=== PATIENT | female | born 1990 | race Hispanic/Latino ===

== ENCOUNTER 2020-05-13 13:00 | Outpatient (CLI) | payer MEDICAID, OTHER ==
[2020-05-14 12:18] LABS: SARS-CoV-2 MS2 Positive; SARS-CoV-2 N Gene Negative; SARS-CoV-2 S Gene Negative; SARS-CoV-2 orf1ab Negative
== END 2020-05-13 13:01 | disposition home or self-care (01) ==
LOC: SCSLAB 13:00
PROVIDERS: ATTEND Family Medicine
DX: Z01.812 Encounter for preprocedural laboratory examination (principal); Z11.59 Encounter for screening for other viral diseases
CPT/HCPCS: 87635; U0003

== ENCOUNTER 2020-05-17 19:45 | Inpatient (IN) | payer MEDICAID, OTHER, SELFPAY ==
[~2020-05-17 19:45] MED LIST: Bupivacaine/Epinephrine 0.25% 30 ML VIAL ONE
[2020-05-17 21:31] VITALS: BMI 32.5
[2020-05-17] MEDS: Lactated Ringer's 1,000 ML IV SCH (21:50)
--- NOTE | 2020-05-17 22:06 | PDOC.FPROB ---
FMR OB H&P: HPI - History of Present Illness Chief Complaint: eIOL Indentification: History of Present Illness: 29 yo at 39.6 wks dated by LMP c/w 9.1 wk sono who presents for eIOL. She has PMH significant for anemia of . She lost a at 1 month due to a cardiac abnormality. echocardiogram with MFM revealed was normal. Pt also has hx of trich with COLBY. Today she feels contractions q6mins, mild pain. She denies OCONNELL, vision changes, shortness of breath, LE edema, abdominal pain. She denies loss of fluids, vaginal bleeding, discharge. [facility] FMR OB H&P: Current - Care : 3 Para: 2000 Gestational age: 39.6 wks Due date: 05/18/20 Dating Criteria: LMP c/w 9.1 wks sono Course/Complications: Anemia of - OB Labs Blood type: O RH: positive Antibody Screen: negative HIV: negative RPR: negative HepBsAg: negative Rubella: immune Gonorrhea: negative Chlamydia: negative Pap Smear: NILM 06/19 A1c: 5.0 GBS: negative H&H: 09/28.9 - Additional Ultrasound Additional: 02/08/20 [place] 88%, Anterior placenta, HAYDEE 22.8, Grossly normal anatomy seen. FMR OB H&P: History - Past Medical History PMH: Anemia of - OB History OB History: Anemia of ; lost a child 2/2 cardiac abnormality at 1 month TDaP given 03/03/20 - EDUCATION SUPERVISOR History EDUCATION SUPERVISOR History: Hx of trich - COLBY negative - Social History Social History: Denies alcohol, tobacco, drugs - Family History Family History: non-contributory FMR OB H&P: Medications - Current Home Medications: Medication Instructions Recorded Confirmed Type [id number]/Iron Fum/Folic/Docusate 1 tablet PO DAILY 05/17/20 05/17/20 History [ 19] Allergies/Adverse Reactions: Allergies Allergy/AdvReac Type Severity Reaction Status Date / Time No Known Drug Allergies Allergy Verified 05/17/20 21:01 FMR OB H&P: ROS - Review of Systems General: denies: fever/chills, weight/appetite/sleep changes Eyes: denies: eye pain, vision changes ENT: denies: nasal congestion, rhinorrhea Cardiovascular: denies: chest pain, palpitation, edema Respiratory: denies: cough, shortness of breath Gastrointestinal: denies: abdominal pain, nausea, vomiting, diarrhea, constipation Genitourinary (Female): denies: dysuria, hematuria Musculoskeletal: denies: pain, swelling Neurologic: denies: numbness, syncope Integumentary: denies: itching, rash Psychological: denies: depression, anxiety FMR OB H&P: Vital Signs - Maternal Vital signs: Vital Signs - First Documented Temp Pulse Resp BP 98.4 F 73 18 132/75 05/17/20 20:56 05/17/20 20:56 05/17/20 20:56 05/17/20 20:56 - Heart Tones Baseline: 165 Variability: moderate Acceleration: present Deceleration: absent Category: category 1 [place] contractions every: q6min FMR OB H&P: Physical Exam - Physical Exam General: NAD, awake, alert and oriented HEENT: PERRLA, EOMI Neck: FROM, no JVD Heart: RRR, normal S1/S2, pulses present, no edema General: CTAB, no respiratory distress, no wheezing Abdomen: soft, gravid, non-tender, bowel sound present Musculoskeletal: pulses present, FROM in all four extremities Neurological: cranial nerves II through XII intact, sensation to pain,touch and proprioception grossly normal Skin: no rash, capillary refill <2 seconds Lymphatic: no purpura, no petechia Psychiatric: intact recent and remote memory, good judgement and insight FMR OB H&P: A/P - Problem List (1) Elective induction of labor planned Current Visit: Yes Status: Acute Code(s): [id number] - (2) Intrauterine Current Visit: Yes Status: Acute Code(s): Z34.90 - ENCNTR FOR SUPRVSN OF NORMAL , UNSP, UNSP TRIMESTER (3) Anemia affecting Current Visit: Yes Status: Acute Code(s): O99.019 - ANEMIA COMPLICATING , UNSPECIFIED TRIMESTER Disposition: Pt is a 29 yo at 39.6 wks dated by LMP c/w 9.1 wks sono who presents for eIOL: # eIOL - [place] 3, contractions q6mins and noticeable. Start cytotec - Borderline tachycardia - monitor. Moderate variability with accelerations present. # Anemia of - H/H pending # GBS negative # Hx of Trichomoniasis - COLBY negative Dispo: admit for cytotec induction Discussion: Date/Time: 05/17/202205 This H&P was discussed with Dr. Sin who agrees with the above documentation and plan.
[2020-05-17] MEDS ORDERED: Lidocaine 1% (PF) 30 ML VIAL SC PRN (22:46)
[2020-05-17] MEDS ORDERED: Carboprost 250 MCG/ML AMP IM PRN (22:46)
[2020-05-17] MEDS ORDERED: Ibuprofen 800 MG TAB PO PRN (22:46)
[2020-05-17] MEDS ORDERED: NS / Oxytocin 40 units/1000ml 1,000 ML IV PRN (22:46)
[2020-05-17] MEDS ORDERED: Misoprostol 200 MCG TAB PR PRN (22:46)
[2020-05-17] MEDS ORDERED: Methylergonovine 0.2 MG/ML VIAL IM PRN (22:46)
[2020-05-17] MEDS ORDERED: Acetaminophen 500 MG TAB PO PRN (22:48)
[2020-05-17] MEDS ORDERED: Promethazine HCl 25 MG/ML VIAL IM PRN (22:48)
[2020-05-17] MEDS ORDERED: hydrALAZINE 20 MG/ML VIAL SLOW IVP PRN (22:48)
[2020-05-17] MEDS ORDERED: Ondansetron PF 4 MG/2 ML Vial IVP PRN (22:48)
[2020-05-17] MEDS ORDERED: NS w/ Oxytocin 10 units 500 ML IV SCH (23:00)
[2020-05-17] MEDS ORDERED: Misoprostol 100 MCG TAB VAG SCH (23:00)
[2020-05-17] MEDS: NS w/ Oxytocin 10 units 500 ML IV SCH (23:05)
[2020-05-17 23:08] LABS: Hemoglobin 10.8 g/dL (12.0-16.0); Mean Corpuscular HGB CONC 34.1 g/dL (32.0-36.0); Mean Corpuscular Volume 90.7 fL (78.0-98.0); Platelet Count 119 thou/uL (130-400); RBC Distribution Width 13.5 % (11.5-14.5); Red Blood Cell (RBC) Count 3.49 mill/uL (4.20-5.40); White Blood Cell (WBC) Count 7.5 thou/uL (4.8-10.8)
--- NOTE | 2020-05-18 03:12 | PDOC.LDPN ---
Labor & Delivery Progress Note - Subjective Subjective: comfortable - Objective Vital signs reviewed and normal: yes General: NAD, resting Uterine fundus: palpable contractions SVE: 03/26/-3 FHT: category 1, variability present [place] contractions every: 2-3 mins - Assessment (1) Elective induction of labor planned Code(s): ZTE9235 - Current Visit: Yes Status: Acute (2) Intrauterine Code(s): Z34.90 - ENCNTR FOR SUPRVSN OF NORMAL , UNSP, UNSP TRIMESTER Current Visit: Yes Status: Acute (3) Anemia affecting Code(s): O99.019 - ANEMIA COMPLICATING , UNSPECIFIED TRIMESTER Current Visit: Yes Status: Acute Plan: continue plan of care -: Pt is a 29 yo at 40.0 wks dated by LMP c/w 9.1 wks sono who presents for eIOL: # eIOL - Cat 1 strip, denisa q2-3 mins. Change made with 1 cytotec. Denisa too frequently at this time for another dose. Will recheck in 3 hours. # Anemia of - Hgb 10.8 # GBS negative # Hx of Trichomoniasis - COLBY negative Dispo: continue current plan
--- NOTE | 2020-05-18 06:40 | PDOC.LDPN ---
Labor & Delivery Progress Note - Subjective Subjective: comfortable, no concerns - Objective Vital signs reviewed and normal: yes General: NAD, resting SVE: soft, midline Dilation: 4.5/40/-2 FHT: category 1, variability present [place] contractions every: 1-5 min Plan: continue plan of care -: - pike score 7 - will discuss starting pitocin at this time.
[2020-05-18] MEDS ORDERED: NS w/ Oxytocin 10 units 500 ML IV SCH (07:15)
--- NOTE | 2020-05-18 08:45 | PDOC.LDPN ---
Labor & Delivery Progress Note - Subjective Subjective: comfortable, painful contractions - Objective Vital signs reviewed and normal: yes General: NAD, breathing through contractions SVE: 6/50/-2 Dilation: 6 Effacement: 50% Station: -2 FHT: category 1, variability present [place] contractions every: 1-4 min AROM: clear fluid Plan: continue plan of care -: - AROM at 0845 - continue expectant mgmt. - may start pitocin if contractions slow down.
[2020-05-18] MEDS ORDERED: Fentanyl 4 mcg/Bup 0.1% Cadd 100 ML ONE (09:28)
--- NOTE | 2020-05-18 10:39 | PDOC.LDPN ---
Labor & Delivery Progress Note - Subjective Subjective: comfortable, painful contractions - Objective Vital signs reviewed and normal: yes General: NAD, breathing through contractions SVE: 7/80/-2 Dilation: 7 Station: -2 FHT: category 1, variability present [place] contractions every: 1-4 min Plan: continue plan of care -: - continue expectant mgmt - may have epidural as desired.
[2020-05-18] MEDS: Lactated Ringer's 1,000 ML IV SCH (11:00)
[2020-05-18] MEDS ORDERED: EPHEDRINE 25 MG/5 ML SYRINGE SLOW IVP PRN (11:34)
[2020-05-18] MEDS ORDERED: Acetaminophen 325 MG TAB PO PRN (11:34)
[2020-05-18] MEDS ORDERED: Ondansetron PF 4 MG/2 ML Vial IVP PRN ×2 (11:34→18:44)
[2020-05-18] MEDS ORDERED: diphenhydrAMINE 50 MG/ML VIAL IVP PRN (11:34)
[2020-05-18] MEDS ORDERED: Promethazine HCl 25 MG/ML VIAL IM PRN (11:34)
[2020-05-18] MEDS ORDERED: Naloxone HCl 0.4 mg/ml Vial IVP PRN ×2 (11:34)
[2020-05-18] MEDS ORDERED: Lactated Ringer's 500 ML IV PRN (11:34)
[2020-05-18] MEDS ORDERED: Communication Order-Pharmacy FS PRN (11:45)
[2020-05-18] MEDS ORDERED: Fentanyl 4 mcg/Bupivacaine 0.1% Cassette 100 ML EPIDURAL SCH (11:45)
[2020-05-18] MEDS: NS w/ Oxytocin 10 units 500 ML IV SCH (12:36)
--- NOTE | 2020-05-18 13:01 | PDOC.LDPN ---
Labor & Delivery Progress Note - Subjective Subjective: comfortable - Objective Vital signs reviewed and normal: yes General: NAD, resting SVE: 8/80/-2 FHT: category 1, early decelerations, variability present AROM: clear fluid - Assessment (1) Anemia affecting Code(s): O99.019 - ANEMIA COMPLICATING , UNSPECIFIED TRIMESTER Current Visit: Yes Status: Acute (2) Elective induction of labor planned Code(s): PNI9015 - Current Visit: Yes Status: Acute (3) Intrauterine Code(s): Z34.90 - ENCNTR FOR SUPRVSN OF NORMAL , UNSP, UNSP TRIMESTER Current Visit: Yes Status: Acute Plan: labor augmentation -: SVE unchanged from last check 2 hours ago, 8/80/-2. Cat 1, occasional early decels. Start pitocin, maternal position change with peanut ball. Recheck in 2 hours. ATTENDING ADDENDUM: I personally evaluated the patient at 1420. 8/90/-1 LOT. occasional late decel but otherwise reassuring FHT. IUPC placed. Continue augmentation. was easy to rotate in the canal but would not stay OA. Continue expectant management.
--- NOTE | 2020-05-18 16:23 | PDOC.LDPN ---
Labor & Delivery Progress Note - Subjective Subjective: comfortable, painful contractions - Objective Vital signs reviewed and normal: yes General: NAD, resting SVE: anterior lip/0 Dilation: anterior lip Effacement: 100% Station: 0 FHT: category 2, variable decelerations (recurrent), variability present [place] contractions every: 1-3 min Resuscitative measures: amniofusion, maternal position change Plan: continue plan of care, pitocin for augmentation (pit at 6), resuscitative measures -: continue expectant mgmt anticipate pushing soon for delivery.
[2020-05-18] MEDS ORDERED: Misoprostol 200 MCG TAB ONE (17:10)
--- NOTE | 2020-05-18 17:44 | PDOC.OPDEL ---
OB Operative/Delivery Note Delivery Dr/Surgeon: Luan Shook (continuity), Pj (attending) Pre-Delivery Diagnosis: active labor Procedure/Post Delivery Dx: spontaneous vaginal delivery Weeks gestation: 40 Anesthesia: epidural - Additional Findings/Plan Placenta delivered: spontaneous Repaired Obstetrical Laceration: none Estimated blood loss: QBL 200 mL Compilations/Other Findings: Delivering Physician: Luan Shook (assist, continuity) Attending: Pj, present for duration of entire delivery Procedure: Spontaneous Vaginal Delivery Anesthesia: epidural QBL: 200 mL Pre-op Diagnosis: 1. Term intrauterine in labor 2. Anemia of 3. Hx of infant at 1 month due to cardiomyopathy Post-op Diagnosis: 1. Term intrauterine , delivered 2. same as above Indications: A 29 y/o female presented to L&D for elective induction of labor Delivery Note: This is 29yo F @ 40.0 wks who delivered a viable M at 1700. Following an uneventful antepartum course, a vigorous male was delivered over an intact perineum in the occipitoanterior position. Anterior Shoulder and then remainder of the body delivered. Body cord & foot cord x1. The head was held down and infant was vigorously dried and provided tactile stimulation. Cord clamped after delayed cord clamping of 1 min, and cut and cord blood collected. Placenta delivered intact in the [place] presentation with a 3 vessel cord noted. Fundal massage was performed and the fundus was firm. The cervix and vagina were inspected and found to be free of lacerations. Cytotec of 800mg placed rectally due to concern for boggy lower uterine segment and multiparity. Infant went to mom for [id number] in good condition for routine care. Apgars were 9/9 at 1 & 5 minutes, respectively. Patient tolerated delivery well and went to after routine recovery/care. Post delivery plan: routine recovery
[2020-05-18] MEDS ORDERED: Lanolin Ointment 7 GM TUBE TOP PRN (18:44)
[2020-05-18] MEDS ORDERED: hydrALAZINE 20 MG/ML VIAL SLOW IVP PRN (18:44)
[2020-05-18] MEDS ORDERED: NS / Oxytocin 40 units/1000ml 1,000 ML IV SCH (18:44)
[2020-05-18] MEDS ORDERED: Bisacodyl 10 MG SUPP PR PRN (18:44)
[2020-05-18] MEDS ORDERED: Milk Of Magnesia 30 ML UDCUP PO PRN (18:44)
[2020-05-18] MEDS ORDERED: Benzocaine-Menthol 82.5 ML CAN TOP PRN (18:44)
[2020-05-18] MEDS ORDERED: Adacel (T-DAP) 0.5 ML SYRINGE IM ONE (18:44)
[2020-05-19] MEDS: Ibuprofen 800 MG TAB PO SCH ×4 (04:00→13:52)
[2020-05-19] MEDS: Docusate Calcium (SURFAK) 240 MG CAP PO SCH ×2 (04:01→08:36)
[2020-05-19] MEDS ORDERED: Ferrous Sulfate 325 MG TAB PO SCH (08:00)
[2020-05-19] MEDS ORDERED: Prenatal Vitamin 1 TAB PO SCH (09:00)
[2020-05-19] MEDS: Lactated Ringer's 1,000 ML IV SCH (09:26)
--- NOTE | 2020-05-19 10:31 | PDOC.PP ---
Post Progress Note Post Day #: 1 Subjective: Patient doing well this AM. No significant overnight events. Lochia minimal. Patient tolerating PO. Pain well controlled. Patient desires d/c home today. PO intake tolerated: yes Flatus: yes Ambulation: yes Vital Signs (12 hours) Temp Pulse Resp BP Pulse Ox 05/19/20 08:29 98.6 F 69 20 120/56 L 98 05/19/20 04:00 98.5 F 64 18 122/63 Weight Weight 83.461 kg - Physical Examination General: NAD Cardiovascular: RRR Respiratory: clear to auscultation bilaterally, non-labored breathing Abdominal: + bowel sounds, lochia (less than period), no distention, appropriately TTP Skin: no rash Neurological: no gross focal deficits Psychiatric: A&Ox3, normal affect Result Diagrams: 05/17/20 22:55 Additional Labs: Post Labs Blood Type O POSITIVE 05/18/20 00:41 (1) Term delivered Code(s): O80 - ENCOUNTER FOR FULL-TERM UNCOMPLICATED DELIVERY Status: Acute (2) (spontaneous vaginal delivery) Code(s): O80 - ENCOUNTER FOR FULL-TERM UNCOMPLICATED DELIVERY Status: Acute - Assessment/Plan Routine PP care - Meeting PP milestones - Rh pos, Rubella immune - Tolerating PO - Lochia minimal - GBS neg - BP's well controlled Dispo: Patient desires d/c home today. D/c pending bili level and possible circ. Addendum - Attending - Attending Attestation Date/Time: 05/19/20 1110 I personally evaluated the patient and discussed the management with Dr. Roland. I agree with the History, Examination, Assessment and Plan documented above with any addition or exceptions noted below. d/c home pending baby bili.
[2020-05-19 12:11] VITALS: TEMP 98.5
[2020-05-19 15:51] LABS: Syphilis Antibody Nonreactive (Nonreactive); Syphilis Antibody Index 0.03 S/CO (<1.00 Non-Reactive)
[2020-05-19 15:52] LABS: HBSAg Index 0.15 S/CO (0-0.99); Hep B Surf Ag Non-Reactive S/CO (NonReactive)
[2020-05-19 17:48] VITALS: BP 126/61
== END 2020-05-19 20:10 | disposition home or self-care (01) | DRG 807 ==
LOC: L&D 20:20 → 3SW 05-18 20:42
PROVIDERS: ADMIT Family Medicine; ATTEND Family Medicine
PROC: 10E0XZZ Delivery of Products of Conception, External Approach (ICD-10-PCS; principal; 2020-05-17)
PROC: 10907ZC Drainage of Amniotic Fluid, Therapeutic from Products of Conception, Via Natural or Artificial Opening (ICD-10-PCS; 2020-05-17)
PROC: 3E033VJ Introduction of Other Hormone into Peripheral Vein, Percutaneous Approach (ICD-10-PCS; 2020-05-17)
DX: O99.02 Anemia complicating childbirth (principal); Z37.0 Single live birth; Z3A.39 39 weeks gestation of pregnancy; O76 Abnormality in fetal heart rate and rhythm complicating labor and delivery; D64.9 Anemia, unspecified
CPT/HCPCS: 36415; 51702; 85027; 86780; 86850; 86900; 86901; 87340; J2590